=== PATIENT | female | born 1940 | race Caucasian/White ===

== ENCOUNTER → 2016-07-25 | Outpatient (CLI) | payer OTHER | LOC: BHLMT 14:00 | PROVIDERS: ATTEND Internal Medicine Interventional Cardiology | DX: I34.0 Nonrheumatic mitral (valve) insufficiency (principal) | CPT/HCPCS: 93306-PO ==

== ENCOUNTER → 2016-07-26 | Outpatient (CLI) | payer OTHER | LOC: BHLMT 14:30 | PROVIDERS: ATTEND Internal Medicine Cardiovascular Disease | DX: R55 Syncope and collapse (principal) | CPT/HCPCS: 93225-PO; 93226-PO ==

== ENCOUNTER → 2016-08-08 | Outpatient (CLI) | payer OTHER | LOC: BHFA 13:00 | PROVIDERS: ATTEND Internal Medicine Cardiovascular Disease | DX: R55 Syncope and collapse (principal); I45.6 Pre-excitation syndrome ==

== ENCOUNTER 2016-10-31 07:16 | Day surgery (SDC) | payer OTHER ==
[2016-10-31] MEDS ORDERED: NS 1,000 ML IV ONE (07:22)
[2016-10-31] MEDS ORDERED: MIDAZOLAM 2 MG/2 ML VIAL IVP ONE (07:22)
[2016-10-31] MEDS ORDERED: ISOPROTERENOL HCL/D5W 0.2 MG/50 ML BAG IV ONE (07:24)
[2016-10-31] MEDS ORDERED: HEPARIN 10,000 UNIT/10 ML MDV ONE (07:24)
[2016-10-31] MEDS ORDERED: BUPIVACAINE 0.5% 30 ML SDV ONE (07:24)
[2016-10-31] MEDS ORDERED: LIDOCAINE 1% 300 MG/30 ML SDV ONE (07:24)
[2016-10-31 08:01] LABS: % IMMATURE GRANULYOCYTES 0.3 % (0.0-1.1); ABSOLUTE IMMATURE GRANULOCYTES 0.02 10^3/uL (0.00-0.10); ADD DIFF? NO; ADD MORPH? NO; ADD SCAN? NO; ATYPICAL LYMPHOCYTE FLAG 0 (0-99); FRAGMENT RBC FLAG 0 (0-99); HEMATOCRIT 38.3 % (38.0-47.0); HEMOGLOBIN 12.7 g/dL (12.6-16.3); LEFT SHIFT FLG 0 (0-99); LIPEMIA HEMOLYSIS FLAG 80 (0-99); MEAN CELL HEMOGLOBIN 30.5 pg (27.9-34.1); MEAN CELL HEMOGLOBIN CONCENTR. 33.2 g/dL (32.4-36.7); MEAN CELL VOLUME 92.1 fL (81.5-99.8); MEAN PLATELET VOLUME 11.2 fL (8.7-11.7); PLATELET CLUMPS FLAG 10 (0-99); PLATELET COUNT 215 10^3/uL (150-400); RED BLOOD CELL COUNT 4.16 10^6/uL (4.18-5.33); RED CELL DISTRIBUTION WIDTH 13.7 % (11.5-15.2)
--- NOTE | 2016-10-31 08:02 | CPEKG ---
Heart Rate: 86 RR Interval: 698 P-R Interval: 160 QRSD Interval: 92 QT Interval: 412 QTC Interval: 493 P Graton: 78 QRS Graton: 40 T Wave Graton: 67 EKG Severity - BORDERLINE ECG - EKG Impression: SINUS RHYTHM Electronically Signed By: Ambrose Sage 31-Oct-2016 11:49:24
[2016-10-31 08:11] LABS: INR 0.95 (0.83-1.16); PROTIME(PATIENT) 12.6 SEC (12.0-15.0)
[2016-10-31 08:12] LABS: APTT 29.5 SEC (23.0-38.0)
[2016-10-31 08:15] LABS: ANION GAP 14 mEq/L (8-16); CALCIUM 10.2 mg/dL (8.5-10.4); CARBON DIOXIDE 22 mEq/l (22-31); CHLORIDE 110 mEq/L (97-110); GLOMERULAR FILTRATION RATE 54; GLUCOSE 95 mg/dL (70-100); POTASSIUM 4.3 mEq/L (3.5-5.2); SODIUM 146 mEq/L (134-144)
[2016-10-31] MEDS ORDERED: MAGNESIUM SULF 1 GM/DEXTROSE 100 ML BAG IV ONE (08:26)
[2016-10-31] MEDS ORDERED: PROPOFOL/EMULSION 500 MG/50 ML BOTTLE IV ONE (08:29)
[2016-10-31] MEDS ORDERED: fentaNYL 100 MCG/2 ML INJ ONE ×2 (08:29→12:04)
[2016-10-31] MEDS ORDERED: MIDAZOLAM 2 MG/2 ML VIAL ONE (08:59)
[2016-10-31] MEDS ORDERED: ADENOSINE 6 MG/2 ML VIAL ONE (09:10)
[2016-10-31] MEDS ORDERED: ADENOSINE 6 MG/2 ML VIAL IVP ONE ×2 (09:10→09:31)
[2016-10-31] MEDS ORDERED: LIDOCAINE 2% JELLY 5 ML TUBE ONE (10:22)
[2016-10-31] MEDS ORDERED: DEXAMETHASONE 4 MG/ML VIAL ONE (10:22)
[2016-10-31] MEDS ORDERED: ONDANSETRON 4 MG/2 ML VIAL IVP PRN (11:51)
--- NOTE | 2016-10-31 12:02 | EPPROC ---
Electrophysiology Procedure Note: DIAGNOSTIC ELECTROPHYSIOLOGIC STUDY Procedures performed: 1. Fluoroscopy 2. EP evaluation with RA/RV/LA pace/record, with arrhythmia induction 3. EP evaluation with RA/RV pace record, insert/reposition catheter, with arrhythmia induction 4. Programmed stimulation + pacing after IV drug INDICATION: Ventricular preexcitation seen on 1 ECG after syncope PROCEDURE: Catheters & Anesthesia: The patient arrived in the Electrophysiology Laboratory in the fasting state. The right clavicular region, right groin, & left groin area were prepped & draped in the usual sterile manner. Moderate sedation was administered by Dr. Rojas. Appropriate non-invasive blood pressure, pulse oximetry & end-tidal CO2 monitoring was established. All catheters were placed percutaneously using the modified Seldinger technique , and advanced into position under fluoroscopic guidance. One #7 [place] deflectable octapolar electrode catheter was advanced to the His-bundle position via the R femoral vein (2mm spacing). One #7 [place] deflectable catheter with 10 pairs of electrodes was placed via the right femoral vein into the coronary sinus. Programmed stimulation was performed from the right atrium, right ventricle and coronary sinus (left atrium). Parahisian pacing demonstrated constant H-A interval with changing V-A intervals and stimulus-A intervals during capture and loss of capture of proximal RBB proving retrograde conduction over AV node. Adenosine injection showed progressive prolongation of HI interval with a single nonconducted P wave which ruled out most AV accessory pathways (except for adenosine sensitive pathways). Decremental A pacing showed HI interval prolongation prior to WBB without preexcitation. Accelerated idioventricular rhythm at a rate similar to sinus rhythm was seen 3 times during procedure. This caused a QRS morphology similar to that seen clinically. 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 No sustained reentrant tachycardia was induced during programmed stimulation at baseline or during graded doses of isoproterenol up to 2 mcg/min. The catheters were removed. The patient was transferred to the cardiovascular holding area in stable condition. Vascular access sheaths were removed in the holding area. There were no apparent complications. Results: A. Spontaneous Intervals: SCL 730 ms AH 65 ms HV 50 ms B. Antegrade AV jay function (decremental pacing) FPERP 350 ms WBB CL 340 ms C. Retrograde AV jay function (decremental pacing) FPERP 390 ms WBB CL 380 ms CONCLUSIONS 1. Normal sinus and AV node function. 2. No evidence of accesory AV pathway presence. 3. No sustained arrhythmias induced. 4. Intermittent wide complex QRS caused by fusion of idioventricular rhythm with sinus rhythm. 5. No apparent complications. Patient Problems: Problems Problem Status Onset Syncope Acute
[2016-10-31] MEDS ORDERED: ACETAMINOPHEN 325 MG TAB ONE (12:07)
== END 2016-10-31 17:31 | disposition home or self-care (01) ==
LOC: FCATH 07:16
PROVIDERS: ATTEND Internal Medicine Cardiovascular Disease
PROC: B2161ZZ Fluoroscopy of Right and Left Heart using Low Osmolar Contrast (ICD-10-PCS; principal; 2016-10-31)
PROC: 4A023FZ Measurement of Cardiac Rhythm, Percutaneous Approach (ICD-10-PCS; principal; 2016-10-31)
PROC: 5A1213Z Performance of Cardiac Pacing, Intermittent (ICD-10-PCS; principal; 2016-10-31)
DX: I45.6 Pre-excitation syndrome (principal); R55 Syncope and collapse; J44.9 Chronic obstructive pulmonary disease, unspecified
CPT/HCPCS: 93005; 93620; 93621; 93623; C1731; J0153; J1100; J1644; J2250; J2704; J3010; J3475